=== PATIENT | female | born 1965 | race Caucasian/White ===

== ENCOUNTER → 2025-04-05 | Outpatient (CLI) | payer OTHER | END | disposition home or self-care (01) | LOC: RAD 08:43 | PROVIDERS: ATTEND Nurse Practitioner Family | DX: R22.2 Localized swelling, mass and lump, trunk (principal) | CPT/HCPCS: 76705 ==

== ENCOUNTER → 2025-08-03 | Outpatient (CLI) | payer OTHER | END | disposition home or self-care (01) | LOC: RAD 08:54 | PROVIDERS: ATTEND Nurse Practitioner Family | DX: R22.2 Localized swelling, mass and lump, trunk (principal) | CPT/HCPCS: 76705 ==